=== PATIENT | male | born 1955 | race Caucasian/White ===

== ENCOUNTER 2019-05-08 00:52 | Inpatient (IN) | payer MEDICARE, MEDICAID ==
[~2019-05-08] VITALS: Ht 172.7 cm; Wt 77.1 kg
[~2019-05-08 00:52] MED LIST: ACET650T10 PO; CLON-418 PO; CYAN-51 PO; DOCU-141 PO; ENOX40DI SUBCUT; IPRA3AMP22 IH; MAG-55 PO; MAGN400O6 PO; MULT1TAB11 PO; NA P133E RC; OMEP20CA11 PO; ONDA4VIA52 IM; THIA100T13 PO
--- NOTE | 2019-05-08 01:15 | NUR ---
PATIENT BIB [facility] AMBULANCE FROM [facility] FOR GPS ADMISSION. A/OX2. SPEECH IS CLEAR, SPEAKS IN COMPLETE SENTENCES. PATIENT IS COOPERATIVE, AND NO SIGNS OF AGITATION UPON ASSESSMENT. RESPIRATORY EVEN AND UNLABORED, NO COUGH NO SOB. NO CARDIOVASCULAR DISTRESS NOTED, ALL PULSES PALPABLE. DENIES ANY N/V/D. PATIENT IN BED, SR UPX2, CALL LIGHT WITHIN REACH. FALL PRECAUTIONS IMPLEMENTED.
[2019-05-08 01:45] LABS: CARBON DIOXIDE 29 mmol/L (21-32); CHLORIDE 106 mmol/L (98-107); CREATININE 0.9 mg/dL (0.6-1.3); GLUCOSE 90 mg/dL (74-106); POTASSIUM 4.3 mmol/L (3.5-5.1); UREA NITROGEN, BLOOD 21 mg/dL (7-18)
[2019-05-08 01:49] LABS: BASOPHILS % (AUTO) 0.3 % (0.0-2.0); EOSINOPHILS # (AUTO) 0.1 K/uL (0.0-0.7); EOSINOPHILS % (AUTO) 1.3 % (0.0-7.0); HEMATOCRIT 49.6 % (36.7-47.1); HEMOGLOBIN 16.5 g/dL (12.5-16.3); LYMPHOCYTES # (AUTO) 1.2 K/uL (20.0-40.0); MEAN CORPUSCULAR HEMOGLOBIN 32.6 uug (23.8-33.4); MEAN CORPUSCULAR HGB CONC 33 g/dL (32.5-36.3); MEAN CORPUSCULAR VOLUME 98.3 fL (73.0-96.2); MONOCYTES # (AUTO) 0.6 K/uL (2.0-10.0); MONOCYTES % (AUTO) 6.9 % (0.0-11.0); NEUTROPHILS # (AUTO) 6.7 K/uL (1.8-8.9); NEUTROPHILS % (AUTO) 77.5 % (38.5-71.5); PLATELET COUNT (AUTO) 145 K/uL (152-348); RED BLOOD CELL COUNT(AUTO) 5.05 MIL/uL (4.06-5.63); WHITE BLOOD COUNT (AUTO) 8.7 K/uL (3.6-10.2)
[2019-05-08 01:52] LABS: ALANINE AMINOTRANSFERASE 44 U/L (16-63); ALKALINE PHOSPHATASE 95 U/L (50-136); ASPARTATE AMINOTRANSFERASE 37 U/L (15-37); BILIRUBIN,DIRECT 0.2 mg/dL (0.0-0.2); BILIRUBIN,TOTAL 0.6 mg/dL (0.2-1.0); TOTAL PROTEIN, SERUM 7.6 g/dL (6.4-8.2)
[2019-05-08 01:53] LABS: ETHANOL < 3 MG/DL (0-0)
[2019-05-08 01:59] LABS: THYROID STIMULATING HORMONE 1.613 mIU/mL (0.358-3.740)
[2019-05-08 02:37] LABS: *BILIRUBIN,URIN NEGATIVE (NEGATIVE); *BLOOD, URINE 1+ (NEGATIVE); *CLARITY,URINE SLIGHTLY CLOUDY (CLEAR); *COLOR,URINE YELLOW (YELLOW); *KETONES,URINE TRACE (NEGATIVE); *UROBILINOGEN,URINE 0.2 E.U./dl (NORMAL); LEUKOCYTE ESTERASE ,URINE 1+ (NEGATIVE); NITRITE, URINE NEGATIVE (NEGATIVE); UGLUCOSE NEGATIVE (NEGATIVE)
[2019-05-08] MEDS ORDERED: QUET400T PO (02:37)
[2019-05-08] MEDS ORDERED: OLAN20TA24 PO (02:37)
[2019-05-08 02:45] LABS: BACTERIA,URINE FEW /HPF (NONE SEEN); MUCUS,URINE FEW /LPF (0-FEW); SQUAMOUS EPITHELIAL CELL,UR FEW /HPF (NONE SEEN)
[2019-05-08 02:50] LABS: *AMPHETAMINE, URINE NEGATIVE (NEGATIVE); *BARBITURATE, URINE NEGATIVE (NEGATIVE); *CANNABINOID, URINE NEGATIVE (NEGATIVE); *COCCAINE, URINE NEGATIVE (NEGATIVE); *OPIATE, URINE NEGATIVE (NEGATIVE); *PHENCYCLIDINE SCREEN,URINE NEGATIVE (NEGATIVE)
[2019-05-08] MEDS ORDERED: ACETAMINOPHEN ES 500 MG TABLET ONE (03:29)
[2019-05-08] MEDS ORDERED: ACETAMINOPHEN ES 500 MG TABLET PO ONE (03:45)
--- NOTE | 2019-05-08 04:20 | NUR ---
Report given to DENNY George
--- NOTE | 2019-05-08 04:52 | NUR ---
Patient transported to MHU in stable condition.
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
[2019-05-08 06:21] VITALS: BP 136/75
[2019-05-08] MEDS ORDERED: MAG HYDROX/AL HYDROX/SIMETH 30 ML LIQUID UDC PO PRN (06:30)
[2019-05-08] MEDS ORDERED: TEMAZEPAM 7.5 MG CAPSULE PO PRN (06:30)
[2019-05-08] MEDS ORDERED: MAGNESIUM HYDROXIDE 30 ML LIQUID UDC PO PRN (06:30)
[2019-05-08 07:30] VITALS: BP_SYST 85
[2019-05-08] MEDS: ACETAMINOPHEN 325 MG TABLET PO PRN (09:05)
[2019-05-08] MEDS: CLONAZEPAM 0.5 MG TABLET PO PRN (09:05)
[2019-05-08] MEDS: OLANZAPINE 5 MG TABLET PO SCH ×2 (15:30→21:19)
[2019-05-08] MEDS: DIVALPROEX 500 MG TABLET.DR PO SCH ×2 (15:30→20:40)
[2019-05-08] MEDS: IBUPROFEN 400 MG TABLET PO PRN (16:20)
[2019-05-08 21:21] VITALS: BP 137/69
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
--- NOTE | 2019-05-08 22:15 | NUR ---
PRBN restoril given for insomnia.
--- NOTE | 2019-05-08 23:15 | NUR ---
appears to be asleep. no distress noted.
[2019-05-09] MEDS: CLONAZEPAM 0.5 MG TABLET PO PRN ×4 (01:15→19:49)
[2019-05-09] MEDS: IBUPROFEN 400 MG TABLET PO PRN ×3 (01:15→19:49)
--- NOTE | 2019-05-09 01:15 | NUR ---
pt has been very restless and intrusive, difficult to redirect. PRN klonopin was given. will continue to monitor closely
--- NOTE | 2019-05-09 02:00 | NUR ---
remains intrusive, and easily agitated. noisy at desk, yelling profanities, at times. difficult to redirect.
[2019-05-09] MEDS: ACETAMINOPHEN 325 MG TABLET PO PRN (03:52)
--- NOTE | 2019-05-09 04:30 | NUR ---
appears to be asleep. no distress noted.
--- NOTE | 2019-05-09 06:00 | NUR ---
slept 1.25 hours, total. continues to sleep. no distress noted.
[2019-05-09 07:30] VITALS: BP 114/51
[2019-05-09] MEDS: OLANZAPINE 5 MG TABLET PO SCH ×2 (08:51→17:05)
[2019-05-09] MEDS: DIVALPROEX 500 MG TABLET.DR PO SCH ×2 (08:51→20:31)
--- NOTE | 2019-05-09 11:00 | NUR ---
SPECIAL EFFECTS ARTIST, Madison Mayfield notified regarding patient positive UTI, with antibiotic order for UTI. Patient continue to wander from room to rom , need frequent redirection.
--- NOTE | 2019-05-09 13:47 | NUR ---
Placement information SW spoke with Evon [admin coordinator] at [facility], Address: [address] [place] [address] [place] [address] ] and confirmed patient will return upon discharge from [facility].
--- NOTE | 2019-05-09 13:47 | NUR ---
Initial discharge note Pt currently resides at a [facility] facility, [facility] [[address] [place] [address]; ]. KAMILLA spoke with [facility], Admin Coordinator [[phone]] at the facility and stated that patient will return when ready for discharge. SW will speak with pt and MD regarding appropriate discharge plans, SW will form a safe and proper discharge plan.
[2019-05-09 16:00] VITALS: BP 104/77
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
[2019-05-09] MEDS: CEphaleXIN 500 MG CAPSULE PO SCH (17:05)
[2019-05-09 19:44] VITALS: BP 125/81
[2019-05-09] MEDS ORDERED: TEMAZEPAM 7.5 MG CAPSULE PO PRN (20:15)
[2019-05-09] MEDS ORDERED: HALOPERIDOL LACTATE 5 MG/1 ML VIAL IM ONE (22:00)
[2019-05-09] MEDS ORDERED: diphenhydrAMINE 50 MG/1 ML VIAL IM ONE (22:00)
[2019-05-09] MEDS ORDERED: LORAZEPAM 2 MG/1 ML VIAL IM ONE (22:00)
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
--- NOTE | 2019-05-09 22:17 | NUR ---
GPS/NSG Chemical Restraint IM Ativan 1mg administered as ordered on left deltoid for patient increasing in restless behavior with escalating agitation, patient refusing to follow nursing direction and posing danger by injury to self and/or others on the unit. Continue to monitor for safety.
[2019-05-10] MEDS: CLONAZEPAM 0.5 MG TABLET PO PRN ×3 (02:20→22:35)
--- NOTE | 2019-05-10 02:20 | NUR ---
pt is now awake, and agitated. gait was unsteady, so he was assisted to the bathroom. remains hostile, and difficult to redirect. SIMBA hunt was given at this time, and he was assisted back to the kory chair. he appears calmer, now. given a pillow and blanket. currently talking to self, quietly.
[2019-05-10] MEDS: IBUPROFEN 400 MG TABLET PO PRN (05:26)
--- NOTE | 2019-05-10 06:00 | NUR ---
slept 6 hours, total. is now awake. no distress noted.
[2019-05-10 08:00] VITALS: BP 108/78
[2019-05-10] MEDS: OLANZAPINE 5 MG TABLET PO SCH ×2 (08:54→18:02)
[2019-05-10] MEDS: DIVALPROEX 500 MG TABLET.DR PO SCH ×2 (08:54→18:08)
[2019-05-10] MEDS: CEphaleXIN 500 MG CAPSULE PO SCH ×2 (08:54→18:00)
[2019-05-10] MEDS: ACETAMINOPHEN 325 MG TABLET PO PRN ×2 (10:22→21:00)
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
[2019-05-10] MEDS ORDERED: diphenhydrAMINE 50 MG/1 ML VIAL IM ONE (12:43)
[2019-05-10] MEDS ORDERED: LORAZEPAM 2 MG/1 ML VIAL IM ONE (12:45)
[2019-05-10] MEDS ORDERED: HALOPERIDOL LACTATE 5 MG/1 ML VIAL IM ONE (12:45)
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
--- NOTE | 2019-05-10 13:47 | NUR ---
Patient asleep in bed, not in any form of distress non-labored breathing.
[2019-05-10 16:00] VITALS: BP 111/71
[2019-05-10 20:54] VITALS: BP 116/60
[2019-05-10] MEDS: TEMAZEPAM 15 MG CAPSULE PO PRN (21:00)
--- NOTE | 2019-05-10 22:00 | NUR ---
received to care, pacing the hallway, intrusive with peers and staff, requiring frequent redirection. becomes verbally hostile at times, when redirected. incontinent of stool several times, requiring a shower, and housekeeping to clean his bathroom, several times. PRN restoril was given at 2100, for insomnia. as of 2199, he remains awake, and restless. currently in tv room, talking to self, appearing distracted by internal stimuli. remains labile, and easily agitated. will continue to monitor closely.
[2019-05-10] MEDS ORDERED: LOPERAMIDE HCL 1 MG/5 ML UDC PO PRN (22:45)
--- NOTE | 2019-05-10 23:35 | NUR ---
remains awake, and restless. PRN klonopin was given. Addendum: 05/11/19 at 0111 by DESHAUN STOUT LVN prn klonopin was given at 5. as of 2334, he appears to be asleep. no distress noted.
--- NOTE | 2019-05-11 00:30 | NUR ---
continues to sleep. no distress noted.
--- NOTE | 2019-05-11 05:00 | NUR ---
slept 2.5 hours, total. remains awake, in kory chair, talking to self. no distress, or aggression noted
[2019-05-11 07:30] VITALS: BP 107/71
--- NOTE | 2019-05-11 07:30 | NUR ---
Received patient awake and sitting in the [place]. intrusive with peers and staff, require frequent redirection. No signs of Distress noted.
[2019-05-11] MEDS: OLANZAPINE 5 MG TABLET PO SCH ×2 (08:56→16:16)
[2019-05-11] MEDS: CEphaleXIN 500 MG CAPSULE PO SCH ×2 (08:56→16:20)
[2019-05-11] MEDS: DIVALPROEX 500 MG TABLET.DR PO SCH ×3 (08:59→16:16)
[2019-05-11] MEDS: ACETAMINOPHEN 325 MG TABLET PO PRN (11:26)
[2019-05-11 16:00] VITALS: BP 112/68
--- NOTE | 2019-05-11 18:18 | NUR ---
received to care, pacing the hallway, intrusive with peers and staff, requiring frequent redirection. becomes verbally hostile at times, when redirected. incontinent of stool several times, Assisted with Shower. Compliant with Medication. Will endorse to Oncoming Nurse.
[2019-05-11] MEDS: IBUPROFEN 400 MG TABLET PO PRN (20:01)
[2019-05-11] MEDS: CLONAZEPAM 0.5 MG TABLET PO PRN (20:01)
[2019-05-11 21:33] VITALS: BP 127/72
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
[2019-05-12] MEDS: CLONAZEPAM 0.5 MG TABLET PO PRN ×2 (06:22→12:18)
[2019-05-12] MEDS: ACETAMINOPHEN 325 MG TABLET PO PRN (06:39)
--- NOTE | 2019-05-12 06:41 | NUR ---
SLEPT FOR APPROX.03;00HRS.HE WAS GIVEN CLONAZEPAM 1 MG AT APPROX 20;00HRS.WOKE UP PACING UP AND DOWN THE HALLWAY LATER.BECAME AGITATED THIS MORNING OVER COFFEE.
[2019-05-12 07:30] VITALS: BP 116/76
[2019-05-12] MEDS: CEphaleXIN 500 MG CAPSULE PO SCH ×2 (08:30→17:21)
[2019-05-12] MEDS: OLANZAPINE 5 MG TABLET PO SCH ×3 (08:30→21:14)
[2019-05-12] MEDS: DIVALPROEX 500 MG TABLET.DR PO SCH ×3 (08:30→17:21)
[2019-05-12] MEDS: IBUPROFEN 400 MG TABLET PO PRN (12:16)
[2019-05-12] MEDS ORDERED: HALOPERIDOL LACTATE 5 MG/1 ML VIAL IM ONE (14:45)
[2019-05-12] MEDS ORDERED: LORAZEPAM 2 MG/1 ML VIAL IM ONE (14:45)
[2019-05-12] MEDS ORDERED: diphenhydrAMINE 50 MG/1 ML VIAL IM ONE (14:45)
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
[2019-05-12 16:00] VITALS: BP 121/77
--- NOTE | 2019-05-12 20:00 | NUR ---
RECEIVED PATIENT IN THE DAY ROOM WATCHING TV. HE IS NOTED A/O X 2. HE IS NOTED HYPERVERBAL, NEEDY, ATTENTION SEEKER, BLUNTED AFFECT, LABILE MOOD. NO AGGRESSIVE/COMBATIVE BX NOTED AT THIS TIME. PATIENT ABLE TO MAKE HIS NEEDS KNOWN. V/S STABLE. PATIENT IS REASSURED FOR HIS SAFETY. SAFETY AND FALL PRECAUTION IN PLACE. WILL CONTINUE TO MONITOR.
[2019-05-12 20:04] VITALS: BP 120/73
[2019-05-13] MEDS: CLONAZEPAM 0.5 MG TABLET PO PRN (05:06)
[2019-05-13] MEDS: IBUPROFEN 400 MG TABLET PO PRN ×2 (05:32→15:35)
--- NOTE | 2019-05-13 06:59 | NUR ---
PATIENT SLEPT FOR APPROX 7.00 HRS THROUGH THE NIGHT. HE CONTINUE NEEDY, ATTENTION SEEKER AND LABILE. HE IS ABLE TO COMPLY WITH MEDICATION REGIMENT. WILL CONTINUE TO MONITOR.
[2019-05-13 07:30] VITALS: BP 113/77
[2019-05-13] MEDS: DIVALPROEX 500 MG TABLET.DR PO SCH ×3 (08:22→16:30)
[2019-05-13] MEDS: CEphaleXIN 500 MG CAPSULE PO SCH ×2 (08:22→16:30)
[2019-05-13] MEDS: CLONAZEPAM 1 MG TABLET PO PRN ×2 (10:01→14:43)
[2019-05-13] MEDS: OLANZAPINE 5 MG TABLET PO SCH ×2 (10:36→20:01)
[2019-05-13 15:14] VITALS: BP 124/49
[2019-05-13] MEDS: DIVALPROEX 250 MG TABLET.DR PO SCH (20:01)
[2019-05-13 20:22] VITALS: BP 108/72
--- NOTE | 2019-05-13 21:03 | NUR ---
Received patient in the hallway, noted A/O x2. Patient is noted calm, appropriate, attention seeking, blunted, affect and labile mood. Med compliant. V/S stable. Patient able to to make his needs known. Reassured patient safety. will continue to monitor
--- NOTE | 2019-05-13 22:00 | NUR ---
pt remains calm, and easy to direct. compliant with medications and staff direction. as of 2199, he appears to be asleep. no distress noted.
[2019-05-14] MEDS: TEMAZEPAM 15 MG CAPSULE PO PRN ×2 (00:48→23:29)
--- NOTE | 2019-05-14 00:48 | NUR ---
pt is now awake. PRN restoril was given at this time, for insomnia.
--- NOTE | 2019-05-14 01:30 | NUR ---
appears to be asleep. no distress noted.
[2019-05-14] MEDS: IBUPROFEN 400 MG TABLET PO PRN ×3 (03:06→23:29)
--- NOTE | 2019-05-14 03:06 | NUR ---
patient complained a pain level of 6. PRN medication (motrin 400mg) po was given. will continue to monitor.
[2019-05-14] MEDS: ACETAMINOPHEN 325 MG TABLET PO PRN (06:46)
[2019-05-14 07:30] VITALS: BP 115/72
[2019-05-14] MEDS: DIVALPROEX 250 MG TABLET.DR PO SCH ×2 (08:21→20:39)
[2019-05-14] MEDS: CEphaleXIN 500 MG CAPSULE PO SCH (08:22)
[2019-05-14] MEDS: OLANZAPINE 5 MG TABLET PO SCH ×2 (08:22→20:38)
[2019-05-14] MEDS: CLONAZEPAM 1 MG TABLET PO PRN ×2 (10:00→16:26)
[2019-05-14] MEDS: DIVALPROEX 500 MG TABLET.DR PO SCH ×2 (12:08→16:00)
[2019-05-14 15:10] VITALS: BP 139/83
--- NOTE | 2019-05-14 18:43 | NUR ---
GPS: RECEIVED PATIENT AOX1-2, PATIENT COMPLIANT WITH MEDICATION, DENIES SI AND HI, VERBALIZES OF PAIN , PAIN MED S GIVEN, PATIENT PRE OCCUPIED OF GOING HOME, PATIENT EASILY IRRITABLE, PRN MEDICATION GIVEN , IN NO DISTRESS AT THIS TIME, WILL CONTINUE MONITOR
[2019-05-14 21:38] VITALS: BP 132/82
--- NOTE | 2019-05-14 22:00 | NUR ---
receive dto care, pacing the hallway, intrusive at times, but easy to redirect. compliant with medications. bedtime snacks given. no interactions noted with peers. as of 2200, he appears to be asleep. no distress noted. will continue to monitor closely.
--- NOTE | 2019-05-14 23:29 | NUR ---
PRN restoril given for insomnia.
--- NOTE | 2019-05-15 | NUR ---
appears to be asleep. no distress noted.
--- NOTE | 2019-05-15 06:00 | NUR ---
slept 5 hours, total. is now awake. assisted with am care, and shower. no distress noted
[2019-05-15 07:30] VITALS: BP 129/74
[2019-05-15] MEDS: OLANZAPINE 5 MG TABLET PO SCH ×2 (08:03→20:23)
[2019-05-15] MEDS: DIVALPROEX 250 MG TABLET.DR PO SCH ×2 (08:04→20:24)
[2019-05-15] MEDS: IBUPROFEN 400 MG TABLET PO PRN ×2 (09:08→20:23)
--- NOTE | 2019-05-15 11:51 | NUR ---
Update discharge plan SW was informed that patient had a court hearing yesterday, and became verbally aggressive towards staff by the end of the hearing, making verbal threats of harming others, and behaving inappropriately. KAMILLA notified MD, and cancelled possible discharge for tomorrow. KAMILLA will follow up with MD regarding safe discharge plans.
[2019-05-15] MEDS: DIVALPROEX 500 MG TABLET.DR PO SCH ×2 (12:03→16:04)
[2019-05-15 16:00] VITALS: BP 108/74
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
[2019-05-15 20:38] VITALS: BP 123/75
--- NOTE | 2019-05-15 21:18 | NUR ---
PATIENT RECEIVED WONDERING THE HALLS INTRUSIVE AND EASILY IRRITABLE. LABILE TO STAFF. PATIENT AOX1, PATIENT COMPLIANT WITH MEDICATION, DENIES SI AND HI.PATIENT ABLE TO MAKE HIS NEEDS KNOWN. PATIENT STATES RIGHT KNEE PAIN 3/10 IBUPROFEN GIVEN ORDERED. PATIENT IS REDIRECTABLE WILL CONTINUE TO REDIRECT NEEDED.
[2019-05-15] MEDS: CLONAZEPAM 1 MG TABLET PO PRN (21:51)
[2019-05-15] MEDS: TEMAZEPAM 15 MG CAPSULE PO PRN (23:14)
[2019-05-16] MEDS: IBUPROFEN 400 MG TABLET PO PRN ×2 (06:18→12:11)
[2019-05-16 07:30] VITALS: BP 133/73
--- NOTE | 2019-05-16 08:53 | NUR ---
Discharge Note Patient will be discharged back to [facility] - [facility] [[address] [place] [address]; [phone]] via Ambulance transportation. Please arrange Ambulance transportation for 1:00pm. Spoke with Evon (Admin Coordinator) and Lisette at [facility] [[phone]] who stated patient can return today. Patient does not have any family contacts at this time. Patient is alert and oriented x3, is able to plan for self-care, and denies any SI/HI. Patient is aware and agreeable with discharge plans. Patient will continue to follow-up with his Psychiatrist at [facility] [[address] [facility] [address]; [phone]] and has an appointment for Monday May 20, 2019 at 9:00am. Patient is part of a Full-Service Partnership (FSP) program and renal social worker, Samara Chairez [[phone]] has been informed of patient�s discharge plans. Patient was provided additional mental health referrals to the National Suicide Prevention Lifeline . Addendum: 05/16/19 at 1044 by VIJAY ESPINOSA Patient discharge was cancelled due to exhibiting recent behaviors. Dr. Gonzales would like to continue monitoring.
[2019-05-16] MEDS: OLANZAPINE 5 MG TABLET PO SCH ×2 (09:09→20:08)
[2019-05-16] MEDS: DIVALPROEX 250 MG TABLET.DR PO SCH ×2 (09:09→18:27)
[2019-05-16] MEDS: ACETAMINOPHEN 325 MG TABLET PO PRN ×3 (09:15→23:58)
[2019-05-16] MEDS: DIVALPROEX 500 MG TABLET.DR PO SCH (12:10)
--- NOTE | 2019-05-16 13:57 | NUR ---
Gps/Field Service Supervisor- Discharged plan changed for tomorrow (05/17/20)per Rona KOHLI.
--- NOTE | 2019-05-16 14:14 | NUR ---
Gps/Event Sales Manager
--- NOTE | 2019-05-16 14:14 | NUR ---
Gps/Pre Certification Specialist- Dr Gonzales in to see patient, aware dc.plan changed for tomorrow, pt. requesting to be discharged tomorrow morning before 11 am.
[2019-05-16] MEDS ORDERED: DIVALPROEX 500 MG TABLET.DR PO SCH (17:00)
[2019-05-16 18:00] VITALS: BP 125/73
[2019-05-16 20:00] VITALS: BP 136/80
[2019-05-16] MEDS: TEMAZEPAM 15 MG CAPSULE PO PRN (23:30)
[2019-05-17] MEDS: IBUPROFEN 400 MG TABLET PO PRN ×2 (04:12→10:24)
[2019-05-17] MEDS: ACETAMINOPHEN 325 MG TABLET PO PRN (07:33)
[2019-05-17 07:44] VITALS: BP 141/82
[2019-05-17] MEDS: DIVALPROEX 250 MG TABLET.DR PO SCH (08:04)
[2019-05-17] MEDS: OLANZAPINE 5 MG TABLET PO SCH (08:05)
--- NOTE | 2019-05-17 10:06 | NUR ---
Discharge Note: Patient will be discharged back to his [facility] [[address] [place] [address]; [phone]] via private Ambulance transportation. Please arrange Ambulance transportation by 11:00am. Spoke with Kwame at [facility] [[phone]] who stated patient can return today. Patient does not have any family contacts at this time. Patient is alert and oriented x3, is able to plan for self-care, and denies any SI/HI. Patient is aware and agreeable with discharge plans. Patient will continue to follow-up with his Psychiatrist at [facility] [[address] [facility] [address]; [phone]] and has an appointment for Monday May 20, 2019 at 9:00am. Patient is part of a Full-Service Partnership (FSP) program and social media editor, Samara Chairez [[phone]] has been informed of patient�s discharge plans. Patient was provided additional mental health referrals to the National Suicide Prevention Lifeline .
--- NOTE | 2019-05-17 11:36 | NUR ---
Patient is D/c via ambulance, d/c copy is given to ambulance with all copies. discharge is explained to patient and signed. No Si/ Ds or Danger to others or any medical complications this shift. Safety maintained this shift
== END 2019-05-17 11:35 | DRG 885 ==
LOC: ER 01:01 → GPS 04:10
PROVIDERS: ADMIT Psychiatry & Neurology Psychiatry; ATTEND Registered Nurse
PROC: 2W3VXYZ Immobilization of Left Toe using Other Device (ICD-10-PCS; principal; 2019-05-08)
DX: F25.9 Schizoaffective disorder, unspecified (principal); N39.0 Urinary tract infection, site not specified; G93.40 Encephalopathy, unspecified; K21.9 Gastro-esophageal reflux disease without esophagitis; S92.515A Nondisplaced fracture of proximal phalanx of left lesser toe(s), initial encounter for closed fracture; X58.XXXA Exposure to other specified factors, initial encounter; Y92.89 Other specified places as the place of occurrence of the external cause; T45.4X Poisoning by, adverse effect of and underdosing of iron and its compounds; B96.20 Unspecified Escherichia coli [E. coli] as the cause of diseases classified elsewhere; Z16.11 Resistance to penicillins; Z16.29 Resistance to other single specified antibiotic; Z16.23 Resistance to quinolones and fluoroquinolones; Z79.899 Other long term (current) drug therapy; F32.9 Major depressive disorder, single episode, unspecified; D69.6 Thrombocytopenia, unspecified
CPT/HCPCS: 36415; 70030-TC; 71045; 73630; 80164; 80307; 84443; 85025; 85730; 87077; 87086; 93005; A9150; G0480; J1200; J1630; J2060; J3490